=== PATIENT | male | born 1940 | race Caucasian/White ===

== ENCOUNTER 2021-06-28 22:07 | Emergency (ER) | payer MEDICARE, OTHER ==
[~2021-06-28] VITALS: Ht 172.7 cm; Wt 72.6 kg
[2021-06-28] MEDS ORDERED: SODIUM BICARBONATE 8.4% INJ 50ML SYRINGE IV ONE (22:10)
[2021-06-28] MEDS ORDERED: EPINEPHrine HCL 1 MG/10 ML SYRG IV ONE (22:10)
[2021-06-28] MEDS ORDERED: LIDOCAINE HCL 100 MG/5ML (2%) SYRG INJ IV ONE (22:10)
[2021-06-28] MEDS ORDERED: SODIUM BICARBONATE 8.4% INJ 50ML SYRINGE ONE (22:11)
== END 2021-06-28 22:27 ==
LOC: EDBD 22:07 → ER 22:09
DX: I46.9 Cardiac arrest, cause unspecified (principal); R06.89 Other abnormalities of breathing
CPT/HCPCS: 31500; 92950; 99285; J0171